=== PATIENT | female | born 1955 | race Caucasian/White ===

== ENCOUNTER 2019-07-26 09:07 | Inpatient (IN) | payer BC ==
[~2019-07-26] VITALS: Ht 167.6 cm; Wt 95.3 kg
[2019-07-26 09:14] VITALS: Ht 167.6 cm; Wt 95.3 kg
[2019-07-26] MEDS ORDERED: TRILIPIX135 M1 PO (09:23)
[2019-07-26] MEDS ORDERED: TEGRETOL200 MG PO (09:23)
[2019-07-26] MEDS ORDERED: VENLAFAXINE HY150 MG (09:24)
[2019-07-26] MEDS ORDERED: GLIMEPIRIDE1 M1 PO (09:24)
[2019-07-26] MEDS ORDERED: TRAZODONE50 M1 PO (09:25)
[2019-07-26] MEDS ORDERED: TOPROL XL25 MG PO (09:25)
[2019-07-26] MEDS ORDERED: BACLOFEN10 MG PO (09:26)
[2019-07-26] MEDS ORDERED: LIPITOR80 MG PO (09:26)
[2019-07-26] MEDS ORDERED: LOTENSIN40 MG PO (09:26)
[2019-07-26] MEDS ORDERED: LIPITOR80 MG (09:26)
[2019-07-26] MEDS ORDERED: HYDROCHLOROTHIA25 MG PO (09:27)
[2019-07-26 10:37] LABS: CALCIUM 8.8 mg/dL (8.5-10.1); CREATININE SERUM 2.3 mg/dL (0.6-1.0); PLATELET COUNT 316 x10^3mcL (130-400)
[2019-07-26 10:39] LABS: BASOPHIL % 0 % (0-2); RED CELL DISTRIBUTION WIDTH 18.4 % (11.5-14.5)
[2019-07-26 10:41] LABS: BILIRUBIN TOTAL 0.3 mg/dL (0.20-1.00); TOTAL PROTEIN, SERUM 7.3 g/dL (6.4-8.2)
[2019-07-26 10:50] LABS: microscopic required? NO
[2019-07-26 10:51] LABS: ALBUMIN 3.2 g/dL (3.4-5.0)
[2019-07-26 11:06] LABS: UA SPECIFIC GRAVITY 1.025 (1.005-1.035); urine erythrocyte NEGATIVE (NEGATIVE)
[2019-07-26 11:28] LABS: CHOLESTEROL 217 mg/dL (<200); HDL CHOLESTEROL 62 mg/dL (40-60)
[2019-07-26 16:52] LABS: AMPHETAMINE QUAL UR NONE DETECTED (See below)
[2019-07-26 17:12] VITALS: BP 99/49
[2019-07-26 20:39] VITALS: BP 110/62
[2019-07-27 06:10] VITALS: BP 109/64
[2019-07-27 09:50] VITALS: BP 116/60
[2019-07-27 13:26] VITALS: BP 115/55
[2019-07-27 16:37] VITALS: BP 117/69
[2019-07-27 20:46] VITALS: BP 140/69
[2019-07-28 05:56] VITALS: BP 139/88
[2019-07-28 06:49] LABS: CALCIUM 8.2 mg/dL (8.5-10.1); CARBON DIOXIDE 29.6 mmol/L (21-32); CHLORIDE SERUM 107 mmol/L (98-107); CREATININE SERUM 0.7 mg/dL (0.6-1.0); GFR1 > 60 mL/min; GLUCOSE SERUM 108 mg/dL (74-106); PHOSPHOROUS 2.3 mg/dL (2.5-4.9); POTASSIUM SERUM 3.8 mmol/L (3.5-5.1); SODIUM SERUM 143 mmol/L (136-145)
[2019-07-28 07:33] LABS: MAGNESIUM 0.9 mg/dL (1.8-2.4)
[2019-07-28 08:06] LABS: BASOPHIL % 0.2 % (0-2); PLATELET COUNT 296 x10^3mcL (130-400)
[2019-07-28 08:12] LABS: RED CELL DISTRIBUTION WIDTH 18.5 % (11.5-14.5)
[2019-07-28 08:51] VITALS: BP 131/56
[2019-07-28 12:24] VITALS: BP 133/71
[2019-07-28 16:25] VITALS: BP 128/75
[2019-07-28 20:56] VITALS: BP 146/76
[2019-07-29 05:46] VITALS: BP 148/78
[2019-07-29 07:35] LABS: CALCIUM 8.6 mg/dL (8.5-10.1); CARBON DIOXIDE 29.7 mmol/L (21-32); CHLORIDE SERUM 108 mmol/L (98-107); CREATININE SERUM 0.6 mg/dL (0.6-1.0); GFR1 > 60 mL/min; GLUCOSE SERUM 108 mg/dL (74-106); MAGNESIUM 1.5 mg/dL (1.8-2.4); PHOSPHOROUS 2.6 mg/dL (2.5-4.9); POTASSIUM SERUM 3.8 mmol/L (3.5-5.1); SODIUM SERUM 144 mmol/L (136-145)
[2019-07-29 07:45] LABS: BASOPHIL % 0.3 % (0-2); PLATELET COUNT 334 x10^3mcL (130-400)
[2019-07-29 07:52] LABS: RED CELL DISTRIBUTION WIDTH 18.2 % (11.5-14.5)
[2019-07-29 09:42] VITALS: BP 159/91
[2019-07-29 13:45] VITALS: BP 142/78
[2019-07-29 16:49] VITALS: BP 131/76
[2019-07-29 21:06] VITALS: BP 145/72
[2019-07-30 05:51] VITALS: BP 141/79
[2019-07-30 06:24] LABS: BASOPHIL % 0.1 % (0-2); PLATELET COUNT 329 x10^3mcL (130-400)
[2019-07-30 06:34] LABS: CALCIUM 8.2 mg/dL (8.5-10.1); CARBON DIOXIDE 29.3 mmol/L (21-32); CHLORIDE SERUM 108 mmol/L (98-107); CREATININE SERUM 0.6 mg/dL (0.6-1.0); GFR1 > 60 mL/min; GLUCOSE SERUM 95 mg/dL (74-106); MAGNESIUM 1.2 mg/dL (1.8-2.4); PHOSPHOROUS 2.7 mg/dL (2.5-4.9); POTASSIUM SERUM 3.5 mmol/L (3.5-5.1); SODIUM SERUM 144 mmol/L (136-145)
[2019-07-30 06:55] LABS: RED CELL DISTRIBUTION WIDTH 18.5 % (11.5-14.5)
[2019-07-30 08:07] VITALS: BP 140/85
[2019-07-30 11:29] VITALS: BP 140/85
[2019-07-30 11:56] VITALS: BP 139/73
[2019-07-30] MEDS ORDERED: VANCOCIN125 MG PO (12:43)
[2019-08-24] MEDS ORDERED: EFFEXOR-XR150 MG PO (07:19)
[2019-08-24] MEDS ORDERED: FENOFIBRATE MI134 MG PO (07:22)
[2019-08-24] MEDS ORDERED: MELOXICAM15 M1 PO (07:25)
[2019-08-24] MEDS ORDERED: TOPROL XL25 MG PO (07:27)
[2019-08-24] MEDS ORDERED: TEGRETOL200 MG PO (07:29)
[2019-08-24] MEDS ORDERED: HYDROCHLOROTHIA25 MG PO (07:32)
[2019-08-24] MEDS ORDERED: NOR10T PO (07:35)
[2019-08-24] MEDS ORDERED: CENTRUM SILVER1 EAC2 PO (07:39)
[2019-08-24] MEDS ORDERED: NATURE S BLEND PO (07:42)
== END 2019-07-30 16:29 | DRG 371 ==
LOC: ED 09:07 → MU 15:55 → DU 15:55
PROVIDERS: Emergency Medicine; General Practice; ADMIT Internal Medicine
DX: A04.72 Enterocolitis due to Clostridium difficile, not specified as recurrent (principal); N17.0 Acute kidney failure with tubular necrosis; E44.1 Mild protein-calorie malnutrition; M79.7 Fibromyalgia; I10 Essential (primary) hypertension; R73.03 Prediabetes; E78.00 Pure hypercholesterolemia, unspecified; D53.9 Nutritional anemia, unspecified; M19.90 Unspecified osteoarthritis, unspecified site; Z68.34 Body mass index [BMI] 34.0-34.9, adult; Z85.3 Personal history of malignant neoplasm of breast
CPT/HCPCS: 82962; 87046; 87046-59; 97110-GP; 97112-GP; G0378; J1956; J3475; J3490; J7030; Q0092

== ENCOUNTER 2019-08-24 12:22 | Inpatient (IN) | payer BC ==
[~2019-08-24] VITALS: Ht 167.6 cm; Wt 92.1 kg
[~2019-08-24 12:22] MED LIST: BACLOFEN10 MG PO; CENTRUM SILVER1 EAC2 PO; EFFEXOR-XR150 MG PO; FENOFIBRATE MI134 MG PO; GLIMEPIRIDE1 M1 PO; HYDROCHLOROTHIA25 MG PO; LIPITOR80 MG; LIPITOR80 MG PO; LOTENSIN40 MG PO; MELOXICAM15 M1 PO; NATURE S BLEND PO; NOR10T PO; TEGRETOL200 MG PO; TOPROL XL25 MG PO; TRAZODONE50 M1 PO; TRILIPIX135 M1 PO; VANCOCIN125 MG PO; VENLAFAXINE HY150 MG
[2019-08-24 12:27] VITALS: Ht 167.6 cm; Wt 92.1 kg
[2019-08-24 14:00] LABS: CALCIUM 9.2 mg/dL (8.5-10.1); CHLORIDE SERUM 105 mmol/L (98-107); CREATININE SERUM 0.8 mg/dL (0.6-1.0); GFR1 > 60 mL/min; GLUCOSE SERUM 75 mg/dL (74-106); POTASSIUM SERUM 3.9 mmol/L (3.5-5.1); SODIUM SERUM 142 mmol/L (136-145)
[2019-08-24 14:04] LABS: ALKALINE PHOSPHATASE 53 U/L (46-116); ALT/SGPT 23 U/L (14-59); AST/SGOT 18 U/L (15-37); MAGNESIUM 1.3 mg/dL (1.8-2.4); TOTAL PROTEIN, SERUM 7.1 g/dL (6.4-8.2)
[2019-08-24 14:05] LABS: ALBUMIN 3.3 g/dL (3.4-5.0); BASOPHIL % 0.2 % (0-2); PLATELET COUNT 304 x10^3mcL (130-400)
[2019-08-24 14:09] LABS: RED CELL DISTRIBUTION WIDTH 16.2 % (11.5-14.5)
[2019-08-24] MEDS ORDERED: QMIIZ ODT15 MG PO (19:36)
[2019-08-24 20:21] LABS: CHOLESTEROL/HDL RATIO 3.8
[2019-08-24 20:27] LABS: T3 TOTAL 1.05 ng/mL
[2019-08-24 20:28] LABS: FREE T4 0.85 ng/dL (0.76-1.46); FREE THYROXINE INDEX 2.5 ug/dL (1.4-4.5); T4(THYROXINE) 7.9 ug/dL (4.7-13.3)
[2019-08-25 04:07] VITALS: BP 127/68
[2019-08-25 05:02] LABS: UA SPECIFIC GRAVITY 1.015 (1.005-1.035); microscopic required? YES; urine erythrocyte 1+ (NEGATIVE)
[2019-08-25 05:22] VITALS: BP 127/68
[2019-08-25 05:33] LABS: AMPHETAMINE QUAL UR NONE DETECTED (See below)
[2019-08-25 07:00] LABS: CALCIUM 9.4 mg/dL (8.5-10.1); CARBON DIOXIDE 30.5 mmol/L (21-32); CHLORIDE SERUM 105 mmol/L (98-107); CREATININE SERUM 0.7 mg/dL (0.6-1.0); GFR1 > 60 mL/min; GLUCOSE SERUM 96 mg/dL (74-106); MAGNESIUM 1.2 mg/dL (1.8-2.4); PHOSPHOROUS 3.7 mg/dL (2.5-4.9); POTASSIUM SERUM 3.5 mmol/L (3.5-5.1); SODIUM SERUM 143 mmol/L (136-145)
[2019-08-25 07:09] LABS: BASOPHIL % 0.5 % (0-2); PLATELET COUNT 272 x10^3mcL (130-400)
[2019-08-25] MEDS ORDERED: LIPITOR80 MG PO (07:16)
[2019-08-25 07:23] LABS: RED CELL DISTRIBUTION WIDTH 16.3 % (11.5-14.5)
[2019-08-25] MEDS ORDERED: BENAZEPRIL HYDR40 M1 PO (07:30)
[2019-08-25] MEDS ORDERED: NEXIUM40 MG PO (07:37)
[2019-08-25] MEDS ORDERED: VITAMIN C PURE500 MG PO (07:40)
[2019-08-25 08:33] VITALS: BP 132/75
[2019-08-25 16:48] VITALS: BP 129/81
[2019-08-25 21:02] VITALS: BP 147/82
[2019-08-26 04:58] VITALS: BP 123/70
[2019-08-26 06:36] LABS: PLATELET COUNT 287 x10^3mcL (130-400)
[2019-08-26 06:37] LABS: CALCIUM 9.1 mg/dL (8.5-10.1); CARBON DIOXIDE 29.7 mmol/L (21-32); CHLORIDE SERUM 106 mmol/L (98-107); CREATININE SERUM 0.7 mg/dL (0.6-1.0); GFR1 > 60 mL/min; GLUCOSE SERUM 115 mg/dL (74-106); POTASSIUM SERUM 3.5 mmol/L (3.5-5.1); SODIUM SERUM 144 mmol/L (136-145)
[2019-08-26 06:45] LABS: BASOPHIL % 0 % (0-2); RED CELL DISTRIBUTION WIDTH 16.1 % (11.5-14.5)
[2019-08-26 08:16] VITALS: BP 118/76
[2019-08-26 17:03] VITALS: BP 108/64
[2019-08-26 20:40] VITALS: BP 112/62
[2019-08-27 05:35] VITALS: BP 122/66
[2019-08-27 06:33] LABS: BASOPHIL % 0.4 % (0-2); PLATELET COUNT 268 x10^3mcL (130-400)
[2019-08-27 07:09] LABS: CALCIUM 8.6 mg/dL (8.5-10.1); CARBON DIOXIDE 32.5 mmol/L (21-32); CHLORIDE SERUM 107 mmol/L (98-107); CREATININE SERUM 0.7 mg/dL (0.6-1.0); GFR1 > 60 mL/min; GLUCOSE SERUM 99 mg/dL (74-106); MAGNESIUM 1.1 mg/dL (1.8-2.4); PHOSPHOROUS 3.6 mg/dL (2.5-4.9); POTASSIUM SERUM 3.8 mmol/L (3.5-5.1); SODIUM SERUM 144 mmol/L (136-145)
[2019-08-27 07:34] LABS: RED CELL DISTRIBUTION WIDTH 15.7 % (11.5-14.5)
[2019-08-27 09:41] VITALS: BP 139/70
[2019-08-27 17:53] VITALS: BP 131/80
[2019-08-27 19:49] VITALS: BP 136/73
[2019-08-28 04:29] VITALS: BP 133/70
[2019-08-28 06:12] LABS: BASOPHIL % 0.4 % (0-2); PLATELET COUNT 267 x10^3mcL (130-400)
[2019-08-28 06:21] LABS: CALCIUM 8.8 mg/dL (8.5-10.1); CARBON DIOXIDE 30.8 mmol/L (21-32); CHLORIDE SERUM 106 mmol/L (98-107); CREATININE SERUM 0.6 mg/dL (0.6-1.0); GFR1 > 60 mL/min; GLUCOSE SERUM 114 mg/dL (74-106); MAGNESIUM 1.4 mg/dL (1.8-2.4); POTASSIUM SERUM 3.6 mmol/L (3.5-5.1); SODIUM SERUM 143 mmol/L (136-145)
[2019-08-28 08:15] VITALS: BP 147/76
[2019-08-28] MEDS ORDERED: ROC1I IV (12:04)
[2019-08-28] MEDS ORDERED: VANCOCIN125 MG PO (12:25)
[2019-08-28 15:53] VITALS: BP 127/79
== END 2019-08-28 18:40 | DRG 690 ==
LOC: ED 12:22 → MU 19:20
PROVIDERS: Emergency Medicine; General Practice; ADMIT Internal Medicine
DX: N39.0 Urinary tract infection, site not specified (principal); E44.1 Mild protein-calorie malnutrition; M79.7 Fibromyalgia; E83.42 Hypomagnesemia; I10 Essential (primary) hypertension; D53.9 Nutritional anemia, unspecified; M54.2 Cervicalgia; M25.562 Pain in left knee; M25.561 Pain in right knee; G89.29 Other chronic pain; E78.00 Pure hypercholesterolemia, unspecified; M19.042 Primary osteoarthritis, left hand; M19.041 Primary osteoarthritis, right hand; R29.6 Repeated falls; Z91.81 History of falling; Z68.32 Body mass index [BMI] 32.0-32.9, adult; Z87.891 Personal history of nicotine dependence
CPT/HCPCS: 83880; 84439; 87046; 87046-59; 97110-GP; 97116-GP; 97530-GP; G0378; J0696; J3475; J7030; J7060; Q0092

== ENCOUNTER 2019-10-15 09:19 | Inpatient (IN) | payer BC ==
[~2019-10-15] VITALS: Ht 167.6 cm; Wt 86.2 kg
[~2019-10-15 09:19] MED LIST changes: +BENAZEPRIL HYDR40 M1 PO; +NEXIUM40 MG PO; +QMIIZ ODT15 MG PO; +ROC1I IV; +VITAMIN C PURE500 MG PO
[2019-10-15 09:28] VITALS: Ht 167.6 cm; Wt 86.2 kg
--- NOTE | 2019-10-15 10:00 | NUR ---
PT BIB AMBULANCE REPORTING LEFT LEG PAIN. PT HAS PURPLISH DISCOLORATION AND STATES, "THAT IS ALWAYS THERE, IT IS THE BRIGHT RED THAT IS SPREADING UP MY LEG AND THE PAIN I AM CONCERNED WITH. I THINK I MAY BE GETTING CELLULITIS AGAIN." NO OBVIOUS REDNESS NOTED, APPROX 5-6 SMALL RED BUMPS TO LLE, SKIN INTACT, NO BLEEDING OR DRAINAGE. PT REPORTS SHE IS BED RIDDEN AND HAS IN E CARGIVER WHICH IS A FRIEND THAT HELPS HER AT HOME. PT STATES SHE IS RECIEVING PHYSICAL THERAPY BECASUE SHE IS UNABLE TO WALK BUT CAN NOT BEAR WEIGHT AT THIS TIME. PT SAID HER PHYSICAL THERAPY IS NEEDED AFTER A FALL SHE HAD MONTHS AGO WHEN HER KNEE WENT OUT ON HER. PT REPORTING SHE NEEDS BILATERAL KNEE REPLACEMENTS BUT CAN NOT GET THEM UNTIL SHE CAN WALK AGAIN. PT IS ALERT AND ORIENTED, BREATHING IS UNLABORED AND EVEN, PT TOOK HOME MED NORCO THIS AM WITH MINIMAL RELIEF. PT AWAITING [facility] [place].
[2019-10-15 11:10] LABS: CALCIUM 9.4 mg/dL (8.5-10.1); CARBON DIOXIDE 31.8 mmol/L (21-32); CHLORIDE SERUM 99 mmol/L (98-107); CREATININE SERUM 0.6 mg/dL (0.6-1.0); GFR1 > 60 mL/min; GLUCOSE SERUM 113 mg/dL (74-106); POTASSIUM SERUM 3.5 mmol/L (3.5-5.1); SODIUM SERUM 140 mmol/L (136-145)
[2019-10-15 11:15] LABS: ALBUMIN 3.4 g/dL (3.4-5.0); ALKALINE PHOSPHATASE 96 U/L (46-116); ALT/SGPT 35 U/L (14-59); AST/SGOT 26 U/L (15-37); BILIRUBIN TOTAL 0.4 mg/dL (0.20-1.00); TOTAL PROTEIN, SERUM 7.5 g/dL (6.4-8.2)
[2019-10-15 11:17] LABS: BASOPHIL % 0.1 % (0-2); PLATELET COUNT 307 x10^3mcL (130-400); RED CELL DISTRIBUTION WIDTH 14.1 % (11.5-14.5)
--- NOTE | 2019-10-15 12:23 | NUR ---
SON JON CALLED TO CHECK ON PT STATUS, OK TO GIVE INFO PER PT AND SON LEFT CONTACT INFO: [phone]
--- NOTE | 2019-10-15 12:56 | NUR ---
ATTEMPTED TO OBTAIN STOOL SAMPLE. PT TAKEN OF BEDPAN AND NOW URINE OR STOOL, CONTENT. MD AWARE AND OK TO SEND PT HOME TO FOLLOW UP WITH PCP PER MD.
--- NOTE | 2019-10-15 13:02 | NUR ---
CALLED AND SPOKE TO JON PT SON. HE WILL BE OFF WORK AT 1800 TODAY AND CAN NOT GET HERE UNTIL 1830.
--- NOTE | 2019-10-15 14:47 | NUR ---
PER NISHA PT IS NOT APPROVED FOR [facility], HOWEVER I CALED THE SON JON AND HE WILL COME CNC MACHINE SETTER PT AT 7 PM TONIGHT AFTER WORK. I INFORMED DR CARO AND PRIMARY NURSE.
--- NOTE | 2019-10-15 15:35 | NUR ---
PER DR CARO, PT IS ADMITTED DX DIARRHEA
--- NOTE | 2019-10-15 15:37 | NUR ---
I CALLED AND LEFT MESSAGE REGARDING PT STATUS
[2019-10-15 16:33] LABS: PHOSPHOROUS 4.8 mg/dL (2.5-4.9)
[2019-10-15 16:46] LABS: CHOLESTEROL/HDL RATIO 3.9
--- NOTE | 2019-10-15 16:51 | NUR ---
REPORT GIVEN TO SAURAV TO CONTINUE PT CARE.
--- NOTE | 2019-10-15 16:54 | NUR ---
I SPOKE WITH SAURAV TO MAKE SURE THE NURSE KNEW THAT THIS PT WAS BEING WORKED UP FOR POSSIBLE CDIFF. SHE IS FULLY AWARE OF
--- NOTE | 2019-10-15 17:06 | NUR ---
RECEIVED PT VIA GURNEY FROM E/D, ACCOMPANIED BY TRANSPORTER. PT A/A/O X 4, CALM, COOPERATIVE. DENIES CHEST PAIN OR DISCOMFORT AT THIS TIME. SCD BY BEDSIDE. NO ACUTE RESPIRATORY DISTRESS NOTED. ABD SOFT, ROUND, TENDERNESS ON PALPATION TO BLQ, NORMOACTIVE BOWEL SOUNDS X 4 QUADS, LAST BM 10/15/19, DIARRHEA; ON CONTACT ISO FOR PRESUMPTIVE C-DIFF. GENERALIZED WEAKNESS, BEDBOUND, LIMITED ROM TO BUE/BLE, EPISODES OF FALLING LAST 3 MONTHS, C/O CONSTANT ACHING GENERALIZED BODY PAIN 08/14, EXACERBATED BY MOVEMENT, RELIEVED BY RESTING AND PAIN MEDICATIONS; FALL RISK PROTOCOL IN PLACE. NOTED SKIN ISSUES: SACROCOCCYX/B BUTTOCKS P/U - OPTIFOAM, LLE BLANCHABLE ERYTHEMA/RUBOR - PIA, R UPPER/LOWER LATERAL THIGH & L UPPER LATERAL THIGH SELF-INFLICTED SCRATCHES - CANOE BUILDER. IV SITE LW 22G, CDI. ORIENTED PT TO ROOM, BED CONTROLS, CALL LIGHT SYSTEM. SIDE RAILS UP X 2, BED IN LOW POSITION. WILL ENDORSE TO CALVIN SALCIDO.
[2019-10-15 20:00] VITALS: BP 106/73
--- NOTE | 2019-10-15 20:00 | NUR ---
PT SITTING UP IN BED. AA&O X4. NO SOB ON ROOM AIR. BREATHING EVEN AND UNLABORED. NO DISTRESS NOTED. IV TO LEFT WRIST, INTACT. SAFETY MEASURES IN PLACE. BED IN LOWEST POSITION. SIDE RAILS UP X2. INSTRUCTED PT TO USE THE CALL LIGHT FOR ASSISTANCE. CALL LIGHT WITHIN REACH.
[2019-10-15 20:12] VITALS: BP 142/72
[2019-10-15 20:35] VITALS: BP 135/63
--- NOTE | 2019-10-15 21:00 | NUR ---
PT REFUSED RECTAL TUBE. DR WOLF MADE AWARE.
--- NOTE | 2019-10-15 22:13 | NUR ---
PT C/O GENERALIZED BODY PAIN 08/14. MEDICATED WITH NORCO.
[2019-10-16 05:33] VITALS: BP 145/75
[2019-10-16 06:49] LABS: CALCIUM 9.2 mg/dL (8.5-10.1); CARBON DIOXIDE 29.2 mmol/L (21-32); CHLORIDE SERUM 99 mmol/L (98-107); CREATININE SERUM 0.6 mg/dL (0.6-1.0); GFR1 > 60 mL/min; GLUCOSE SERUM 86 mg/dL (74-106); MAGNESIUM 1.4 mg/dL (1.8-2.4); PHOSPHOROUS 3.8 mg/dL (2.5-4.9); SODIUM SERUM 138 mmol/L (136-145)
[2019-10-16 06:53] LABS: BASOPHIL % 0.3 % (0-2); PLATELET COUNT 291 x10^3mcL (130-400); RED CELL DISTRIBUTION WIDTH 14.1 % (11.5-14.5)
--- NOTE | 2019-10-16 07:00 | NUR ---
PT RESTED IN INTERVALS. NO SOB ON ROOM AIR. C/O GENERALIZED BODY PAIN. NORCO GIVEN X3. NO ACUTE DISTRESS NOTED. SAFETY MEASURES MAINTAINED. ALL NEEDS ATTENDED TO. CALL LIGHT WITHIN REACH. WILL ENDORSE CONTINUITY OF CARE TO DAY SHIFT RN.
--- NOTE | 2019-10-16 07:10 | NUR ---
RECEIVED BEDSIDE REPORT FROM MOSQUITO SPRAYER NURSE AT THIS TIME. PATIENT RESTING COMFORTABLY IN BED. NO APPARENT DISTRESS OR DISCOMFORT NOTED. BREATHING EVEN AND UNLABORED. NO RESPIRATORY DISTRESS OR DISCOMFORT NOTED. PATIENT DENIES CHEST PAIN/PRESSURE AT THIS TIME. IV PATENT AND INTACT. ALL QUESTIONS AND CONCERNS ADDRESSED. ALL NEEDS ATTENDED TO. WILL CONTINUE TO MONITOR
[2019-10-16 08:47] VITALS: BP 139/70
[2019-10-16 09:56] LABS: POTASSIUM SERUM 2.8 mmol/L (3.5-5.1)
--- NOTE | 2019-10-16 10:00 | NUR ---
ALL MORNING MEDICATIONS ADMINISTERED. PATIENT TOLERATED WELL. NO APPARENT ADVERSE EFFECTS NOTED. ALL NEEDS ATTENDED TO. WILL CONTINUE TO MONITOR
--- NOTE | 2019-10-16 10:18 | NUR ---
REPORTED TO DR KNOWLES PATIENT POTASSIUM 2.8 AT THIS TIME. AWAITING ORDERS AT THIS TIME. WILL CONTINUE TO MONITOR
[2019-10-16] MEDS ORDERED: VITAMIN B-650 M1 (10:32)
[2019-10-16] MEDS ORDERED: VITAMIN B-650 M1 PO (10:32)
--- NOTE | 2019-10-16 11:10 | NUR ---
SPOKE TO DR KNOWLES REGARDING ALL OF PATIENT HOME MEDICATION ON HOME REC. PER DR KNOWLES SHE SAW PATIENTS MEDICATION. WILL PROCEED ORDERED.
--- NOTE | 2019-10-16 12:11 | NUR ---
PATIENT C/O LEG PAIN AT THIS TIME. PATIENT MEDICATED WITH NORCO PO PRN. PATIENT TOLERATED WELL. NO APPARENT ADVERSE EFFECTS NOTED. ALL NEEDS ATTENDED TO. WILL CONTINUE TO MONITOR
[2019-10-16 12:51] VITALS: BP 112/67
--- NOTE | 2019-10-16 13:10 | NUR ---
PATIENT SITTING UP IN BED EATING LUNCH AT THIS TIME. PATIENT TOLERATING DIET WELL. NO APPARENT DISTRESS OR DISCOMFORT NOTED. ALL NEEDS ATTENDED TO. WILL CONTINUE TO MONITOR
--- NOTE | 2019-10-16 16:41 | NUR ---
PATIENT C/O BACK PAIN AT THIS TIME. PATIENT RECEIVED NORCO PO PRN AT THIS TIME. PATIENT TOLERATED WELL. NO APPARENT ADVERSE EFFECTS NOTED. ALL NEEDS ATTENDED TO. WILL CONTINUE TO MONITOR
--- NOTE | 2019-10-16 16:42 | NUR ---
PT. REFUSES TO BE CHECKED TO BUTTOCKS AREA, PRIMARY DATA ANALYST ETL DEVELOPER DONE EARLIER AND REPORT TO ME THAT SACRALCOCCYX SKIN DRY AND INTACT, PERINEUM AND PERIANAL SKIN WITH MOISTURE ASSOCIATED DERMATITIS FROM DIARRHEA. BLE ASSESSED WITH NO OPEN ACTIVE WOUND, ERYTHEMA AND SWELLING TO LLE, C/O PAIN DUE TO NEUROPATHY PER PT. PT. REQUEST FOR PAIN MEDICATION, PRIMARY RN NOTIFIED. NO WOUND CARE TO BLE AT THIS TIME WILL CONTINUE TO FOLLOW IV ANTIBIOTIC TREATMENT.
--- NOTE | 2019-10-16 17:50 | NUR ---
PATIENT SITTING UP IN BED EATING DINNER AT THIS TIME. PATIENT TOLERATING DIET WELL. NO APPARENT DISTRESS NOTED. ALL NEEDS ATTENDED TO. WILL CONTINUE TO MONITOR
[2019-10-16 18:14] VITALS: BP 112/72
--- NOTE | 2019-10-16 18:46 | NUR ---
PATIENT RESTING COMFORTABLY IN BED AT THIS TIME. NO APPARENT DISTRESS OR DISCOMFORT NOTED. IV PATENT AND INTACT. ALL QUESTIONS AND CONCERNS ADDRESSED. ALL NEEDS ATTENDED TO. SAFETY PRECAUTIONS MAINTAINED. WILL ENDORSE ALL CARE TO INFORMATICS SCIENTIST NURSE
--- NOTE | 2019-10-16 19:15 | NUR ---
RECEIVED REPORT FROM DAY SHIFT RN. PT SITTING UP IN BED. AA&O X4. NO SOB NOTED ON ROOM AIR. BREATHING EVEN AND UNLABORED. NO C/O N/V/ABD PAIN AT THIS TIME. NO DISTRESS NOTED. IV TO LFA, NS INFUSING. SAFETY MEASURES IN PLACE. BED IN LOWEST POSITION. SIDE RAILS UP X2. CALL LIGHT WITHIN EASY REACH.
--- NOTE | 2019-10-16 20:57 | NUR ---
PT C/O NECK ACHING PAIN 06/14. MEDICATED WITH NORCO.
[2019-10-16 22:12] VITALS: BP 120/71
--- NOTE | 2019-10-17 02:21 | NUR ---
PT C/O GENERALIZED BODY ACHE 06/14. NORCO GIVEN.
[2019-10-17 05:53] VITALS: BP 129/66
--- NOTE | 2019-10-17 06:19 | NUR ---
PT C/O NECK AND KRUPA LEG PAIN 06/14. NORCO GIVEN.
[2019-10-17 06:53] LABS: BASOPHIL % 0.5 % (0-2); PLATELET COUNT 270 x10^3mcL (130-400); RED CELL DISTRIBUTION WIDTH 14.4 % (11.5-14.5)
--- NOTE | 2019-10-17 06:55 | NUR ---
PT RESTING IN BED COMFORTABLY. NO SOB ON ROOM AIR. NO DISTRESS NOTED. SAFETY MEASURES MAINTAINED. ALL NEEDS ATTENDED TO. CALL LIGHT WITHIN EASY REACH. WILL ENDORSE CONTINUITY OF CARE TO DAY SHIFT RN.
[2019-10-17 07:08] LABS: CALCIUM 9.1 mg/dL (8.5-10.1); CARBON DIOXIDE 31.3 mmol/L (21-32); CHLORIDE SERUM 101 mmol/L (98-107); CREATININE SERUM 0.5 mg/dL (0.6-1.0); GFR1 > 60 mL/min; GLUCOSE SERUM 110 mg/dL (74-106); MAGNESIUM 1.4 mg/dL (1.8-2.4); PHOSPHOROUS 3.2 mg/dL (2.5-4.9); POTASSIUM SERUM 3.6 mmol/L (3.5-5.1); SODIUM SERUM 140 mmol/L (136-145)
--- NOTE | 2019-10-17 07:35 | NUR ---
PT IS AAOX4. NORMAL S1S2 NOTED. LUNG SOUNDS CTA. ON R/A. NO COUGH OR SOB NOTED. BOWEL SOUNDS ACTIVE X4 QUADS. PT HAS C/O DIARRHEA. IV CATH TO LW PATENT, SITE WNL. NO S/S OF INFECTION OR INFILTRATION NOTED. PT HAS LIMITED ROM TO BUE AND BLE. PT EDUCATED TO CALL FOR HELP WHEN ATTEMPTING TO GET UP OOB. PT STATES PAIN IS 4/10 BUT TOLERABLE AT THIS TIME. CALL LIGHT WITHIN REACH. BED IN LOWEST POSITION.
[2019-10-17 08:47] VITALS: BP 135/76
--- NOTE | 2019-10-17 09:51 | NUR ---
SCHEDULED MEDS GIVEN AND TOLERATED WELL. B/P 135/96, HR 91. PT REPOSITIONED FOR COMFORT. STATES PAIN IN 4/10 BUT TOLERABLE AT THIS TIME. CALL LIGHT WITHIN REACH.
--- NOTE | 2019-10-17 11:10 | NUR ---
NORCO 10MG PO GIVEN L LEG, NECK AND HAND THROBBING PAIN 06/14. EXTRA FLUIDS GIVEN. FARM GENERAL MANAGER APPLIED RADHA BOOT TO LLE. LLE ELEVATED ON PILLOW. SCHEDULED MED GIVEN AND TOLERATED WELL. RESP EVEN AND UNLABORED. NO RESP NOTED. CALL LIGHT WITHIN REACH.
--- NOTE | 2019-10-17 11:38 | NUR ---
PRAVOLON BOOTS APPLIED TO BLE. BLE ELEVATED ON PILLOW. PT VERBALLY EDUCATED ON PRESSURE ULCERS. PT REFUSED AIR MATRESS TO BE PLACED FOR SKIN MAINTENANCE. CALL LIGHT WITHIN REACH.
[2019-10-17 12:40] VITALS: BP 146/88
--- NOTE | 2019-10-17 13:43 | NUR ---
PT IS SITTING UP IN BED EATING LUNCH. SCHEDULE MEDS GIVEN AND TOLERATED WELL. PT DENIES PAIN AT THIS TIME. NO DISTRESS NOTED. CALL LIGHT WITHIN REACH.
--- NOTE | 2019-10-17 16:11 | NUR ---
REPORTED TO DR. DAVIES THAT PT WOULD LIKE HER DIET CHANGED AND WOULD LIKE TO TAKE HER BACLOFEN AND TEGRETOL AT [address] DAVIES STATED THAT THE MED TIME AND DIET ORDER NEED TO REMAIN AT THIS TIME. REPORTED TO DR. DAVIES THAT PT'S MOBIC 15MG Q DAY IS THE WRONG DOSE. DR. DAVIES STATED SHE WILL CHANGE THE DOSE TO THE PT'S HOME MED DOSE. PT MADE AWARE.
--- NOTE | 2019-10-17 16:15 | NUR ---
EDUCATED PT ABOUT AIR MATRESS A SECOND TIME. PT AGREED TO HAVE ON PLACED. AIR MATRESS PLACED AT THIS TIME. PT HAD GOWN CHANGE AND PERINEAL CARE GIVEN. PT DENIES PAIN AT THIS TIME. NO DISTRESS NOTED. BLE ELEVATED ON PILLOW. PREVALON BOOTS IN PLACE. CALL LIGHT WITHIN REACH.
[2019-10-17 16:32] VITALS: BP 137/75
--- NOTE | 2019-10-17 17:28 | NUR ---
NORCO 10MG PO GIVEN FOR BODY ACHES 05/14. EXTRA FLUIDS GIVEN. SCHEDULED MEDS GIVEN AND TOLERATED WELL. RESP EVEN AND UNLABORED. NO DISTRESS NOTED. CALL LIGHT WITHIN REACH.
--- NOTE | 2019-10-17 18:30 | NUR ---
CALLED TO [facility] TO ARRANGE FOR TRANSPORTATION SINCE PT HAS AUTH FOR [facility], UNFORTUNATELY [facility] STAFF NAME EDWARD SAYS THIS TRANSPORTATION CANNOT BE ARRANGE DUE TO NO MEDICAL NECESSITY. CALLED AND SPOKE TO AURORA(PT FUR OPERATOR) AND MADE HER AWARE OF ABOVE IN SPITE OF AUTH NO., AURORA TOLD ME TO CALL THE SON AND LET HIM KNOW THAT FAMILY IS RESPONSIBLE FOR THE TRANSPORTATION EITHER FOR FAMILY TO TRANSPORT THE PT VIA PRIVATE AUTO OR MEDICAL VAN TRANSPORT DUE AND FAMILY WILL BE RESPONSIBLE FOR THE PAYMENT SINCE IT IS NOT COVERED BY INSURANCE. KWESI SIMPSON ASSIGNED TO THIS PT MADE AWARE OF [facility] AND SHE WILL CALL THE SON OF THE SITUATION. ENDORSED TO INCOMING NT CHARGE NURSE CELY AND NIKI SIMPSON OF ABOVE.
--- NOTE | 2019-10-17 18:34 | NUR ---
PT IS AAOX4. RESP EVEN AND UNLABORED. NO DISTRESS NOTED. IVF RUNNING TO LW, SITE WNL. NO S/S OF INFECTION OR INFILTRATION NOTED. PT HAS L FOOT RADHA BOOT IN PLACE AND BLE PRAVALON BOOTS. BLE ELEVATED ON PILLOWS. CALL LIGHT WITHIN REACH. BED IN LOWEST POSITION. WILL ENDORSE ALL CARE TO NOC RN.
--- NOTE | 2019-10-17 19:31 | NUR ---
SPOKE TO PT'S SON, BIMAL IRAHETA AND INFORMED HIM THAT THE PT'S INSURANCE WILL NOT PAY FOR TRANSPORTATION. THE PT WILL NEED TO PAY. ALSO INFORMED THE SON THAT PT WILL HAVE TO PAY FOR THE HOSPITAL STAY FROM THIS MIDNIGHT AND ON IF PT CAN NOT BE TRANSFERRED THIS EVENING. CALLED [facility] AND [facility] (TEL-[phone]) AND GAVE REPORT TO SANDRA FAIRBANKS. PT WILL GO TO ROOM 520 AND BE FOLLOWED BY DR. ROBLES. GAVE REPORT TO CALVIN PRINCE. NIKI IS INFORMED THAT THE PT'S SON IS WAITING TO SEE WHAT THE COST OF TRANSPORT WILL BE. [facility] APPLICATION SUPPORT TECHNICIAN IS CALLING [facility] FOR COST AND STATED SHE WILL CALL BIMAL BACK DMITRIY.
[2019-10-17 19:40] VITALS: BP 141/81
--- NOTE | 2019-10-17 19:45 | NUR ---
RECEIVED PT AWAKE ALERT AND VERBALLY RESPONSIVE.DENIES CHEST[PAIN AT THIS TIME.BP 141/81 MMHG,HR 71.IN 7/10 TO CRAMPING PAIN TO HER LEGS.HX C-DIFF.REPORTS OF DIARRHEA TODAY.INCONTINENT OF BOWEL/BLADDER AT TIMES.DIAPER PLACED RERQUESTED.PT FOR POSSIBLE TRANSFER TO SNF TODAY.AWAITING FOR POSSIBLE ARRANGEMENTS WITH TRANSPOTATION TONIGHT.PT AWARE OF POSSIBLE TRANSFER.WILL CONTINUE TO MONITOR.
--- NOTE | 2019-10-17 20:57 | NUR ---
AT 2044- AURORA CALLED AND STATED THAT HER COTTON FACTOR SALVATORE DIAZ-SAID THAT PATIENT CAN STAY TONIGHT D/T UNABLE TO PROVIDE SAFE TRANSPORTATION BY THE SON AND UNABLE TO PROVIDE SAFE DISCHARGE.AURORA WILL FOLLOW UP WITH THIS CASE TOMORROW AND WILL UPDATE US WITH DC TRANSPORTATION, ALSO STATED THAT WE NEED TO INVOLVE THE PACKAGE DYEING MACHINE OPERATOR ABOUT LOOKING FOR TRANSPORTATION FOR PATIENT AND ALSO PREPARE THE FAMILY ABOUT PAYING FOR THE TRANSPORTATION.JESSE WALLIS -UPDATED WITH THIS ABOVE CONVERSATION. AT 2049- CALLED [facility] AND SPOKE TO HUMA-COTTON FACTOR AND TOLD HER THAT PATIENT CANT COME TONIGHT, SHE SAID THAT AURORA ALSO CALLED HER AND THEY WILL SAVE THE BED TILL TOMORROW. WILL UPDATE FAMILY.
--- NOTE | 2019-10-18 04:55 | NUR ---
PT SLEPT WELL ALL NIGHT.MEDICATED WITH NORCO 10/325 MG PO X2 FOR LLE PAIN WITH GOOD RELIEF.NO ASE NOTED FROM FLAGYL IV AND VANCO PO ATB.ALL NEEDS MET.WILL CONTINUE TO MONITOR.
[2019-10-18 05:46] VITALS: BP 140/74
[2019-10-18 06:10] LABS: BASOPHIL % 0.3 % (0-2); PLATELET COUNT 301 x10^3mcL (130-400); RED CELL DISTRIBUTION WIDTH 13.9 % (11.5-14.5)
[2019-10-18 06:53] LABS: CALCIUM 9.3 mg/dL (8.5-10.1); CARBON DIOXIDE 31.2 mmol/L (21-32); CHLORIDE SERUM 99 mmol/L (98-107); CREATININE SERUM 0.5 mg/dL (0.6-1.0); GFR1 > 60 mL/min; GLUCOSE SERUM 103 mg/dL (74-106); POTASSIUM SERUM 3.2 mmol/L (3.5-5.1); SODIUM SERUM 136 mmol/L (136-145)
[2019-10-18 07:00] LABS: MAGNESIUM 0.9 mg/dL (1.8-2.4)
--- NOTE | 2019-10-18 07:20 | NUR ---
PT IS AAOX4. LUNG SOUNDS CTA. ON R/A. ABDOMEN ROUND, SOFT, NONTENDER, NONDISTENDED. PT HAS C/O DIARRHEA. BLE ELEVATED WITH PRAVALON BOOTS IN PLACE ELEVATED ON PILLOW. LLE WITH CDI RADHA BOOT IN PLACE. PT HAS PERINEAL REDNESS AND SACROCOCCYX REDNESS WITH OPTIFOAM IN PLACE. AIR MATRESS IN PLACE. IVF RUNNING TO LW. SITE WNL. NO S/S OF INFECTION OR INFILTRATION NOTED. PT STATES PAIN TO BLE IS CONTROLLED AT THIS TIME. CALL LIGHT WITHIN REACH. BED IN LOWEST POSITION.
--- NOTE | 2019-10-18 07:35 | NUR ---
REPORTED TO KORI MARX THAT PT'S MAG = 0.9 AND K+3.2. RECEIVED ORDER FOR MAGENESIUM 4GM IV X1 NOW AND KLORCON 40 MEQ PO X1 NOW. ORDER NOTED AND CARRIED OUT. PT MADE AWARE.
[2019-10-18 08:00] VITALS: BP 163/85
--- NOTE | 2019-10-18 09:21 | NUR ---
PT CHANGED, PERINEAL CARE GIVEN, OPTIFOAM PLACED TO SACRO-COCCYX. KLORCON PO GIVEN FOR K+ = 3.2 AND IV MAGNESIUM GIVEN FOR MAG+0.9. SCHEDULED MEDS GIVEN AND TOLERATED WELL. B/P 163/85 (110). HR 63. PT STATES SHE HAS PAIN 05/14. NORCO WILL BE GIVEN. RESP EVEN AND UNLABORED. CALL LIGHT WITHIN REACH.
--- NOTE | 2019-10-18 09:21 | NUR ---
PT CHANGED, PERINEAL CARE GIVEN, OPTIFOAM PLACED TO SACRO-COCCYX. SHEDULED MEDS GIVEN AND TOLERATED WELL. B/P 163/85 (110). HR 63. PT STATES SHE HAS PAIN 05/14. NORCO WILL BE GIVEN. RESP EVEN AND UNLABORED. CALL LIGHT WITHIN REACH.
--- NOTE | 2019-10-18 10:00 | NUR ---
NORCO PO GIVEN FOR LLE PAIN 06/14. RESP EVEN AND UNLABORED. PT REPOSITIONED FOR COMFORT. BLE ELEVATED ON PILLOW WITH PRAVALON BOOTS IN PLACE. IV CATH 22G STARTED TO LFA ON FIRST ATTEMPT FOR SECOND NON=COMPATIBLE IV MED. CATH WITH GOOD BLOOD RETURN AND FLUSHED. COVERED WITH CDI OCCLUSIVE DRESSING. PT TOLERATED PROCEDURE WELL. CALL LIGHT WITHIN REACH. BED IN LOWEST POSITION.
--- NOTE | 2019-10-18 10:33 | NUR ---
PT IS RECEIVING P/T THERAPY AT THIS TIME.
[2019-10-18 12:37] VITALS: BP 109/54
--- NOTE | 2019-10-18 13:12 | NUR ---
Intervention/RDN Recommendation(s): 1. Continue on BRAT diet as tolerated. 2. If/when medically appropriate per MD, d/c BRAT diet and start on Regular.
--- NOTE | 2019-10-18 13:12 | NUR ---
Initial Nutrition Assessment: Dx: c. diff PMHx: pre-DM, HTN, fibromyalgia, dyslipidemia, arthritis PSHx: hysterectomy, left breast lumbectomy, varicose vein removal left leg Labs: (10/18) Na 140, K 3.2, Glu 103, BUN 6.0 L, Cr 0.5 L, H/H 11.9/37. Meds: Effexor, flagyl, hydrochlorothiazide, klor-con, Levaquin, Lipitor, lotensin, mag-ox, magnesium sulfate, norco, Prilosec, sodium chl 0.9%, tegretol, Tylenol, Vit B1, vancomycin, zofran Diet: BRAT PO intake since admission: (10/16) B: 75%, L: 60%, D: 85%, (10/17) B: 75%; overall average: 74%, slightly inadequate. Ht: 167.64 cm / 66 inches / 5'6" Wt: 86.183 kg / 189 pounds BMI: 30.6 kg/m2, obesity class 1 IBW: 130 pounds / 59 kg %IBW: 145% ADJBW: 144 pounds / 66 kg UBW: 190 pounds Age: 64 Food Allergies: NKFA Skin: sacrococcyx/b buttocks, LLE blanchable erythema, rt upper/lower lateral and left upper lateral thighs self-inflicted scratches [place]: 13 Edema: none noted GI: Last BM: 10/17/19 Pt admitted with dx: diarrhea 2/2 possible c. diff colitis, cellulitis to left foot, hypomagnesemia, hx dyslipidemia, hx hypertension, hx hypercholesterolemia, DVT prophylaxis. RD Note (10/18): Consult - wound care for perineal irritation Problem with: N/V/D/C: Diarrhea this morning Problems with: Chewing: No Swallowing: No Current appetite: poor, is tired of BRAT diet, lacks variety, would like regular diet. Recent wt change: Pt reports 78-pound wt loss over the last 8-9 months. She did want to lose wt, but this wt loss "just happened." She reports having had multiple episodes of c.diff which may have contributed to wt loss. Vitamin/Supplement use: Centrum Silver, vit C, vit B6, vit D Special diet at home: Regular Physical activity: ambulates well, does not use home oxygen, Pt reports that she is unable to stand without a walker Nutrition education given (specify specific nutrition education and handout given): Pt declined nutrition education stating that she does not have any questions; however, she understands why she has been on the BRAT diet. Food-drug interactions? N/A Education given? N/A Estimated Nutritional Needs Based on adjusted body weight of 66 kg. Energy: 2194-8337 kcal/d (25-30 kcal/kg for adult maintenance) Protein: 66-80 gm/d (1-1.2 gm/kg for adult maintenance) Fluid: 4657-3139 mL/d (1 mL/kcal) or per MD. Nutrition Diagnosis 1. Altered GI function related to c. diff as evidenced by diarrhea, Pt reports of loose, pasty stools. Intervention/RDN Recommendation(s): 1. Continue on BRAT diet as tolerated. 2. If/when medically appropriate per MD, d/c BRAT diet and start on Regular. Monitor/Evaluate Goal: Intake via PO intakes to meet at least 75% of estimated needs with acceptable tolerance within 3-5 days. Monitor: PO intakes and/or nutrition support tolerance, Labs, GI function, Skin integrity, Weights. F/U in 3-5 days as moderate risk (10/21-)
--- NOTE | 2019-10-18 13:20 | NUR ---
PT TO TRANSFER TO [facility], PHONE , TO ROOM 520. PT IS TO BE FOLLOWED BY DR. ROBLES. REPORT GIVEN TO CALVIN RUIZ. PT TRANSFER TIME UNKNOWN AT THIS TIME. PT MADE AWARE.
--- NOTE | 2019-10-18 14:19 | NUR ---
NORCO PO GIVEN FOR BACK AND BLE PAIN 05/14. PT REPOSITIONED FOR COMFORT. EXTRA FLUIDS GIVEN. CALL LIGHT WITHIN REACH.
--- NOTE | 2019-10-18 15:00 | NUR ---
PT HAS BEEN PICKED UP BY W/C SALVATOREFER THAT SON BIMAL HAD ARRANGED FOR MOTHER. TRANFER INSTRUCTIONS REVIEWED WITH PT. PT AGREED WITH SNF PLACEMENT. IV CATH TO LW AND IV CATH TO LFA REMOVED, BOTH CATH INTACT. SITES WNL. BOTH SITES COVERED WITH GAUZE AND BANDAID. ALL PERSONAL BELONGINGS TAKEN WITH PT. VS: T 98.6, HR 96, RR 16, B/P 109/54, O2 SAT 98% ON R/A. PT STATES PAIN IN TOLERABLE AT THIS TIME.
--- NOTE | 2019-10-18 16:59 | NUR ---
PHYSICAL THERAPY DAILY NOTES CO-SIGN All documentation done by the Garbage Truck Helper for 10/18/19 has been reviewed. I agree with the documentation. Reviewed/Co-Signed by: Maxx Lira PT Documentation Done by:MANDO MERIDA LAMINATOR PREFORMS PROGRESS LENNY; 10/18/19 Hgb=11.9
== END 2019-10-18 15:04 | DRG 603 ==
LOC: ED 09:19 → MU 16:13
PROVIDERS: Emergency Medicine; ADMIT Internal Medicine
DX: L03.116 Cellulitis of left lower limb (principal); K52.9 Noninfective gastroenteritis and colitis, unspecified; L85.3 Xerosis cutis; R73.03 Prediabetes; I73.9 Peripheral vascular disease, unspecified; I87.2 Venous insufficiency (chronic) (peripheral); M79.7 Fibromyalgia; I10 Essential (primary) hypertension; E83.42 Hypomagnesemia; E78.00 Pure hypercholesterolemia, unspecified; E78.5 Hyperlipidemia, unspecified; Z68.30 Body mass index [BMI] 30.0-30.9, adult; Z87.891 Personal history of nicotine dependence; Z79.84 Long term (current) use of oral hypoglycemic drugs
CPT/HCPCS: 87046; 87046-59; 97110-GP; 97530-GP; G0378; J0690; J1956; J3475; J3490; J7030; Q0092